=== PATIENT | male | born 1960 | race Caucasian/White ===

== ENCOUNTER 2016-04-04 14:39 | Inpatient (IN) ==
[2016-04-04] MEDS ORDERED: Ondansetron 4 MG/2 ML VIAL IV ONE (16:51)
[2016-04-04] MEDS ORDERED: *HR* HYDROmorphone (PF) 1 MG/ML SYRINGE IV ONE (16:51)
[2016-04-04] MEDS ORDERED: Vancomycin 1,500 MG in D5% in Water 250 ML IVPB ONE (17:00)
[2016-04-04] MEDS ORDERED: Piperacillin/Tazobactam 3.375 GM in D5% in Water (Mini-Bag+) 100 ML IVPB ONE (17:00)
[2016-04-04] MEDS ORDERED: Lidocaine/EPI 1:100k 1% 20 ML VIAL IJ ONE (17:01)
[2016-04-04 17:35] LABS: Basophils % 0.1 %; Eosinophils # 0.1 K/mcL (0.0-0.6); Eosinophils % 0.4 %; Hematocrit 48.4 % (37.5-50.1); Hemoglobin 15.7 g/dL (12.9-16.9); Immature Granulocytes % 1.3 % (0-4); Lymphocytes # 0.9 K/mcL (0.6-4.6); Mean Corpuscular HGB Conc 32.4 g/dL (31.6-35.5); Mean Corpuscular Hemoglobin 28.8 pg (28.0-33.3); Mean Corpuscular Volume 88.8 fL (83.0-100.0); Mean Platelet Volume 9.8 fL (9.4-12.4); Monocytes # 1.3 K/mcL (0.0-1.3); Monocytes % 7.1 %; Neutrophils # 15.8 K/mcL (1.6-8.9); Platelet Count 251 K/mcL (140-400); Red Blood Count 5.45 M/mcL (4.19-5.50); Red Cell Distribution Width 14.5 % (11.5-14.5); Segmented Neutrophils % 86.1 %
[2016-04-04 17:41] LABS: INR 1.1; Prothrombin Time 11.5 Seconds (9.4-12.1)
[2016-04-04 17:44] LABS: Activated Partial Thrombo Time 32.1 Seconds (26.0-36.0)
--- NOTE | 2016-04-04 17:44 | Emergency Department Note ---
Disposition Clinical Impression: Cellulitis of groin, right, Abscess of groin, right, Failure of outpatient treatment Disposition: Admitted As Inpatient Condition: Good Referrals: Thor Hilton MD [Primary Care Provider] - Forms: ED Satisfaction Letter Skin/Abscess/FB HPI Chief complaint: ED Skin/Abscess/Foreign Body Stated complaint: Abscess to groin Time Seen by Provider: 04/04/16 16:15 Source: patient Limitations: no limitations Nursing Notes Reviewed: Yes Vital Signs Reviewed: Yes HPI Narrative: Patient is a 55-year-old male who approximately 4 days ago was seen had a abscess in his right groin he was placed on Bactrim and Keflex and sent home. He states yesterday he had significant worsening of his symptoms he had redness erythema extending from his groin up into the area above his penis above his pubic bone. He states his painful red arm in appearance. Location: genitals (Groin) Severity: severe Quality: aching, dull Consistency: constant Improves with: none Worsens with: palpation Associated symptoms: Denies: fever, chills Treatments prior to arrival: other (Antibiotics) Allergies Allergy/AdvReac Type Severity Reaction Status Date / Time No Known Allergies Allergy Verified 04/04/16 14:55 All systems ED: reviewed and negative except as stated. Constitutional: Denies: fever, chills, weakness Gastrointestinal: Denies: nausea, vomiting, diarrhea Past Medical History - Past Medical History Source: patient, old records reviewed, nursing notes reviewed Medical history: Reports: diabetes, kidney stones Psychiatric history: Reports: no psych history - Social History Smoking Status: Current every day smoker Smokeless Tobacco Status: No Alcohol use: Reports: rarely Drug use: Reports: none Physical Exam - General Limitations: no limitations General appearance: alert, in no apparent distress - Head Head exam: atraumatic, normocephalic, normal inspection - Eye Eye exam: Present: normal appearance, PERRL, EOMI - Expanded Eye Exam Pupils: Left: reactive - ENT ENT exam: normal exam, normal oropharynx, mucous membranes moist - Expanded ENT Exam External ear exam: Present: normal external inspection Mouth exam: Present: normal external inspection Teeth exam: Present: normal inspection Throat exam: Present: normal inspection - Neck Neck exam: Present: normal inspection, full ROM, trachea midline - Chest Chest inspection: Present: normal inspection, symmetric chest wall rise - Respiratory Respiratory exam: Present: normal lung sounds bilaterally - Cardiovascular Cardiovascular exam: Present: regular rate, normal rhythm, normal heart sounds - Abdominal Exam Abdominal exam: Present: soft, Non-Tender. Absent: tenderness, distention, guarding, rebound, rigidity - Male exam: Present: other (Patient has some small abscess in the right groin the largest. About 1 cm he has diffuse erythema and induration in the right groin stenting in the mons pubis) - Extremities Exam Extremities exam: Present: normal inspection, full ROM. Absent: tenderness, pedal edema - Expanded Upper Extremity Exam Shoulder exam: Present: normal inspection, full ROM Arm exam: Present: normal inspection, full ROM Elbow exam: Present: normal inspection, full ROM Forearm/Wrist exam: Present: normal inspection, full ROM Hand exam: Present: normal inspection, full ROM Vascular exam: Normal: capillary refill, radial pulse - Expanded Lower Extremity Exam Hip/Pelvis exam: Present: normal inspection, full ROM Upper leg exam: Present: normal inspection, full ROM Knee exam: Present: normal inspection, full ROM Lower leg exam: Present: normal inspection, full ROM Ankle exam: Present: normal inspection, full ROM Foot/toe exam: Present: normal inspection, full ROM Neurovascular/Tendon exam: Absent: motor deficit, sensory deficit, tendon deficit - Back Exam Back exam: Present: normal inspection, full ROM. Absent: tenderness - Neurological Exam Neurological exam: Present: alert, oriented X3 - Expanded Neurological Exam Patient oriented to: Present: person, place, time Coma Scale Eye Opening: Spontaneous Coma Scale Motor Response: Obeys Commands Coma Scale Verbal Response: Oriented Coma Scale Total: 15 - Psychiatric Psychiatric exam: Present: normal affect, normal mood - Skin Skin exam: Present: warm, dry Course - Reevaluation(s) Reevaluation #1: dr. Caceres urology evaluated the patient the ER he will see him again first thing in the morning admitted to the hospitalist service IV antibiotics for now Time: 19:22 Vital Signs Temperature 98.2 F 04/04/16 14:55 Pulse Rate 97 04/04/16 14:55 Respiratory Rate 16 04/04/16 14:55 Blood Pressure 136/73 04/04/16 14:55 O2 Sat by Pulse Oximetry 97 04/04/16 14:55 Temperature 98.2 F 04/04/16 14:55 Pulse Rate 98 04/04/16 18:05 Respiratory Rate 18 02/22/17 18:05 Blood Pressure 146/76 04/04/16 18:05 O2 Sat by Pulse Oximetry 97 04/04/16 18:05 Oxygen Delivery Oxygen Delivery Room Air Procedures - Abscess I/D Consent obtained: verbal consent Site: scrotum Side (if applicable): right Local Anesthetic: lidocaine 1%, with epi Amount of Anesthesia Used (mL): 5 Technique: incised with #11 blade Amount of fluid: 1 Irrigation: No Packing used?: none Skin/Abscess/Foreign Body - Differential Diagnosis Likely: abscess of skin or subcutaneous tissue, allergic reaction to drug, cellulitis, eczema, insect bites - Medical Records Medical records reviewed: Yes I reviewed the patient's medical records. - Lab Data Lab results reviewed: Yes I reviewed the patient's lab results. Result diagrams: 04/04/16 17:10 04/04/16 17:10 Lab Results 04/04/16 04/04/16 04/04/16 Range/Units 17:10 17:10 17:10 WBC 18.3 H (4.3-11.1) K/mcL RBC 5.45 (4.19-5.50) M/mcL Hgb 15.7 (12.9-16.9) g/dL Hct 48.4 (37.5-50.1) % MCV 88.8 (83.0-100.0) fL MCH 28.8 (28.0-33.3) pg MCHC 32.4 (31.6-35.5) g/dL RDW 14.5 (11.5-14.5) % Plt Count 251 (140-400) K/mcL MPV 9.8 (9.4-12.4) fL Immature Gran % 1.3 (0-4) % Seg Neutrophils % 86.1 % Lymphocytes % 5.0 % Monocytes % 7.1 % Eosinophils % 0.4 % Basophils % 0.1 % Neutrophils # 15.8 H (1.6-8.9) K/mcL Lymphocytes # 0.9 (0.6-4.6) K/mcL Monocytes # 1.3 (0.0-1.3) K/mcL Eosinophils # 0.1 (0.0-0.6) K/mcL Basophils # 0.0 (0.0-0.2) K/mcL PT 11.5 (9.4-12.1) Seconds INR 1.1 APTT 32.1 (26.0-36.0) Seconds Sodium 134 L (136-145) mEq/L Potassium 4.2 (3.5-4.5) mEq/L Chloride 101 (98-109) mEq/L Carbon Dioxide 20 (19-29) mEq/L BUN 15 (8-26) mg/dL Creatinine 0.89 (0.72-1.25) mg/dL Est GFR ( Amer) > 60 (> 60) Est GFR (Non-Af Amer) > 60 (> 60) BUN/Creatinine Ratio 17 (6-26) Glucose 311 H (70-99) mg/dL Calculated Osmolality 291 (280-300) Calcium 9.9 (8.6-10.8) mg/dL Magnesium 1.9 (1.6-2.6) mg/dL Total Bilirubin 0.9 (0.2-1.2) mg/dL Direct Bilirubin 0.3 (0.0-0.5) mg/dL Indirect Bilirubin 0.6 (0.0-1.2) mg/dL AST 14 (5-34) Units/L ALT 26 (0-55) Units/L Alkaline Phosphatase 174 H (38-126) Units/L Serum Total Protein 7.3 (6.0-8.3) g/dL Albumin 3.0 L (3.5-5.0) g/dL Globulin 4.3 H (2.4-3.5) g/dL Albumin/Globulin Ratio 0.7 L (1.1-2.2) - Radiology Data Radiology results reviewed: Yes I reviewed the patient's radiology results.
[2016-04-04 17:48] LABS: Alanine Aminotransferase 26 Units/L (0-55); Albumin/Globulin Ratio 0.7 (1.1-2.2); Alkaline Phosphatase 174 Units/L (38-126); Aspartate Amino Transferase 14 Units/L (5-34); BUN/Creatinine Ratio 17 (6-26); Bilirubin,Direct 0.3 mg/dL (0.0-0.5); Bilirubin,Indirect 0.6 mg/dL (0.0-1.2); Bilirubin,Total 0.9 mg/dL (0.2-1.2); Blood Urea Nitrogen 15 mg/dL (8-26); Calcium 9.9 mg/dL (8.6-10.8); Carbon Dioxide 20 mEq/L (19-29); Chloride 101 mEq/L (98-109); Globulin 4.3 g/dL (2.4-3.5); Glucose 311 mg/dL (70-99); Magnesium 1.9 mg/dL (1.6-2.6); Osmolality,Calculated 291 (280-300); Potassium 4.2 mEq/L (3.5-4.5); Sodium 134 mEq/L (136-145); Total Protein 7.3 g/dL (6.0-8.3); eGFR For African Americans > 60 (> 60); eGFR For Non-African Americans > 60 (> 60)
[2016-04-04 19:24] LABS: C-Reactive Protein 392 mg/L (Less than 5)
[2016-04-04] MEDS ORDERED: *HR* Morphine 2 MG/ML SYRINGE IVP PRN (20:47)
[2016-04-04] MEDS ORDERED: Ibuprofen 400 MG TABLET PO PRN (20:47)
[2016-04-04] MEDS ORDERED: Naloxone 0.4 MG/ML INJ IVP PRN (20:47)
[2016-04-04] MEDS ORDERED: Dextrose Gel 15 GM PO PRN ×2 (20:47)
[2016-04-04] MEDS ORDERED: Acetaminophen 325 MG TABLET PO PRN (20:47)
[2016-04-04] MEDS ORDERED: *HR* Dextrose 50 % in Water (Syg) 50 ML SYRINGE IVP PRN (20:47)
[2016-04-04] MEDS ORDERED: D5% in Water 1,000 ML IV PRN (20:47)
[2016-04-04] MEDS ORDERED: Ondansetron 4 MG/2 ML VIAL IVP PRN (20:47)
[2016-04-04] MEDS ORDERED: Vancomycin 1,500 MG in D5% in Water 250 ML IVPB SCH (21:00)
--- NOTE | 2016-04-04 21:08 | Urology - Consult Note ---
Date of Encounter: 04/04/16 Time of Encounter: 21:06 Urology CN:HPI Consult date: 04/04/16 Reason for consult Urology: Other History of present illness: pt seen in Dr Costa's office today. sent to ER for possible inguinal infection. no fever. has been present for 1 week but one day hx of rapid right inguinal swelling and pain. hx of abscesses. +DM. no drainage. Past Med Surg Social Fam HX - Past Medical History Medical history: diabetes, kidney stones Psychiatric history: no psych history - Social History Smoking Status: Current every day smoker Smokeless Tobacco Status: No Alcohol use: rarely Drug use: none Medications and Allergies Atorvastatin Calcium [Lipitor] 80 mg PO HS 04/04/16 [History] Cephalexin [Keflex] 500 mg PO Q6H 04/04/16 [History] Insulin Glargine [Lantus] 65 unit SQ BID 04/04/16 [History] Metformin HCl [Glucophage Xr] 750 mg PO QPM 04/04/16 [History] Oxycodone HCl/Acetaminophen [Percocet 5-325 mg Tablet] 1 each PO Q6H PRN [History] Ramipril [Altace] 5 mg PO DAILY 04/04/16 [History] Sulfamethoxazole/Trimeth DS [Bactrim DS] 1 each PO BID 04/04/16 [History] Allergies No Known Allergies Allergy (Verified 04/04/16 14:55) Review of Systems - Constitutional malaise, no fever(s) - EENT Nose, mouth and throat: no dry mouth - Cardiovascular no chest pain - Respiratory no cough - Gastrointestinal no abdominal pain - Genitourinary no dysuria - Integumentary erythema, swelling - Neurological no confusion - Psychiatric no anxiety - Hematologic/Lymphatic no easy bleeding - Allergic/Immunologic no throat swelling Exam Initial Vital Signs Temp Pulse Resp BP Pulse Ox 98.2 F 97 16 136/73 97 04/04/16 14:55 04/04/16 14:55 04/04/16 14:55 04/04/16 14:55 04/04/16 14:55 - General physical appearance Present: well developed, no distress - Eyes Present: PERRL - ENT Present: normal nares - Neck Present: no masses - Respiratory Present: normal respiratory effort - Abdomen Abdomen: Present: soft - Genitourinary other (elevated, enlarged tender right inguinal area. erythema extends up to suprapubic area. minimal scrotal or penile involvement. some flutuance but no obvious abscess. warm to touch. no crepitus. testicle palpates normal.) - Neurologic Present: normal coordination Urology Results - Labs 04/04/16 17:10 04/04/16 17:10 Abnormal lab results WBC 18.3 K/mcL (4.3-11.1) H 04/04/16 17:10 Neutrophils # 15.8 K/mcL (1.6-8.9) H 04/04/16 17:10 ESR 115 mm/hr (0-10) H 04/04/16 17:10 Sodium 134 mEq/L (136-145) L 04/04/16 17:10 Glucose 311 mg/dL (70-99) H 04/04/16 17:10 Alkaline Phosphatase 174 Units/L (38-126) H 04/04/16 17:10 C-Reactive Protein 392 mg/L (Less than 5) H 04/04/16 17:10 Albumin 3.0 g/dL (3.5-5.0) L 04/04/16 17:10 Globulin 4.3 g/dL (2.4-3.5) H 04/04/16 17:10 Albumin/Globulin Ratio 0.7 (1.1-2.2) L 04/04/16 17:10 All other labs normal. Consult Discharge Plan - Plan Referrals: Thor Hilton MD [Primary Care Provider] -
[2016-04-04 21:10] LABS: Hemoglobin A1C 10.7 %
--- NOTE | 2016-04-04 21:12 | Internal Med History&Physical ---
Date of Encounter: 04/04/16 Time of Encounter: 20:05 Assessment and Plan (1) Cellulitis of groin, right Current visit: Yes Status: Acute 1. Small I&D performed in ER -- cultures obtained. 2. Dr. Caceres saw patient in ER and we discussed case together. 3. Blood cultures ordered. 4. Broad spectrum antibiotics including Vancomycin, Zosyn, and Flagyl. 5. Urology (Dr. Caceres) will re-evaluate in a.m. and decide if surgery is necessary. 6. Will order urinalysis and culture. 7. S/p failed outpatient treatment. (2) IDDM (insulin dependent diabetes mellitus) Current visit: Yes Status: Chronic 1. Will continue Lantus at half the home dose given he will be npo. 2. Hold Metformin. 3. SSI as needed. 4. Adjust insulin as needed to maintain glucose control. (3) DVT prophylaxis Current visit: Yes Status: Acute 1. Heparin SQ. Internal Medicine - H&P: HPI Chief complaint: right groin cellulitis s/p failed outpatient treatment Admitted From: Emergency Dept Plans for Post Hospital Care: Home History of present illness: Mr. Guevara is a 55 year old male who was sent to the ER with complaints of persistent right groin and inguinal cellulitis despite outpatient antibiotic treatment. He was seen in urology clinic this afternoon and referred to ER for admission. In the ER, patient had a small incision and culture performed by the ER staff. A CT scan of the pelvis was obtained also which revealed cellulitis of the right groin with possibility of Laney's gangrene. ER staff contacted me to admit the patient. I requested urgent evaluation by urology. Dr. Caceres was contacted by ER staff who saw patient immediately. Dr. Caceres then contacted me and we discussed the patient case. Dr. Caceres agrees patient should be admitted and placed on aggressive IV antibiotics. He outlined and demarcated the areas of cellulitis with marker. He does not feel patient needs surgery at this present time. He will reevaluate in the analyst business analysis and decide on the need for possible surgical intervention. He is hopeful that patient will likely only need incision and drainage of an abscess. At that point, I agreed with Dr. Caceres and admitted patient to hospitalist service with consultation to urology. I saw patient in the ER and he reiterated the above history. He has been dealing with this for several days to a week. He has been on Bactrim and Keflex with little improvement and initial worsening of his cellulitis. He denies any fevers, chills, or body aches. He is diabetic and notes his glucoses been relatively stable and running about 150-200, which is his baseline. He denies any dysuria, hematuria, urinary urgency, or flank pain. He is very pleasant and cooperative and denies any complaints at the present time. Past Med Surg Social Fam HX - Past Medical History Attestation: Yes The following information was validated with the patient. Source: patient, old records reviewed Medical history: diabetes, hyperlipidemia, hypertension, kidney stones Psychiatric history: no psych history - Past Surgical History Surgical History: other (kidney stone extraction) - Social History Smoking Status: Current every day smoker Smokeless Tobacco Status: No Alcohol use: rarely Drug use: none Occupational status: employed Current living situation: Home, With Family Activity Level: Independent ambulation Recent Out of Country Travel Within the Last 8 Weeks: No - Family History Mother Living Status: Still Living Hx Family GI Disorders: No Hx Family Genitourinary Disorders: No Hx Family Endocrine Disorder: No Father Living Status: Cause of : alcoholism Internal Medicine - H&P: Meds Atorvastatin Calcium [Lipitor] 80 mg PO HS 04/04/16 [History] Cephalexin [Keflex] 500 mg PO Q6H 04/04/16 [History] Insulin Glargine [Lantus] 65 unit SQ BID 04/04/16 [History] Metformin HCl [Glucophage Xr] 750 mg PO QPM 04/04/16 [History] Oxycodone HCl/Acetaminophen [Percocet 5-325 mg Tablet] 1 each PO Q6H PRN [History] Ramipril [Altace] 5 mg PO DAILY 04/04/16 [History] Sulfamethoxazole/Trimeth DS [Bactrim DS] 1 each PO BID 04/04/16 [History] Allergies No Known Allergies Allergy (Verified 04/04/16 14:55) - Constitutional Constitutional: no chills, no fever(s) - EENT Eyes: no change in vision Ears: no ear pain, no tinnitus Nose, mouth and throat: no nasal congestion - Cardiovascular Cardiovascular ROS IM: no chest pain, no dyspnea, no dyspnea on exertion - Respiratory Respiratory: no cough, no hemoptysis, no chest congestion, no change in phlegm color - Gastrointestinal Gastrointestinal: no abdominal pain, no diarrhea, no hematemesis, no hematochezia, no nausea, no vomiting - Genitourinary Genitourinary ROS male: no dysuria, no flank pain, no hematuria, no nocturia - Musculoskeletal Musculoskeletal ROS IM: no muscle cramps, no muscle weakness - Integumentary Integumentary IM: rash (cellulitis in right groin area), sores (right groin area ), no unusual bruising - Neurological Neurological ROS: no dizziness, no focal weakness, no headache(s), no weakness - Psychiatric Psychiatric: no anxiety, no depression - Endocrine Endocrine IM: no polydipsia, no polyphagia, no polyuria - Hematologic/Lymphatic Hematologic/Lymphatic: no easy bruising - Allergic/Immunologic Allergic/Immunologic: no wheezing, no GI upset with certain foods - Constitutional Vitals: Temp Pulse Resp BP Pulse Ox 98.2 F 96 16 146/86 97 04/04/16 14:55 04/04/16 19:52 04/04/16 20:10 04/04/16 20:10 04/04/16 19:52 General appearance: Present: cooperative, A&O X 3, pleasant, no acute distress, answers questions appropriately - Head Head exam: Present: atraumatic, normal inspection - Eye Eye exam: Present: EOMI, normal appearance, PERRL. Absent: scleral icterus Pupils: Present: normal accommodation - ENT ENT exam: Present: mucous membranes dry, normal exam, normal oropharynx - Neck Neck exam general surgery: Present: full ROM, normal inspection, supple. Absent : lymphadenopathy, nuchal rigidity, thyromegaly - Expanded Neck Exam Neck exam: Absent: carotid bruit - Respiratory Respiratory exam: Present: CTAB. Absent: rales, respiratory distress, rhonchi, wheezes - Cardiovascular Cardiovascular exam: Present: RRR, +S1, +S2. Absent: diastolic murmur, systolic murmur - GI/Abdominal GI/Abdominal exam: Present: normal bowel sounds. Absent: guarding, hepatomegaly , mass, rebound, splenomegaly, tenderness - exam: Present: scrotal swelling (redness/swelling/warmth in right prepubic area and into right scrotal area; no fluctuance; no significant tenderness; no crepitus; no drainage). Absent: normal inspection - Extremities Exam Extremities exam: Present: full ROM, normal capillary refill, warm. Absent: calf tenderness, pedal edema, tenderness - Back Exam Back exam: Present: normal inspection. Absent: CVA tenderness (L), CVA tenderness (R) - Neurological Exam Neurological exam: Present: alert, CN II-XII intact, oriented X3, no focal deficits - Psychiatric Psychiatric exam: Absent: anxious, depressed - Skin Skin exam: Present: dry, warm Internal Med - H&P Results - Labs CBC & Chem 7: 04/04/16 17:10 04/04/16 17:10 - Diagnostic Studies CT scan - pelvis Status: image reviewed by me (report noted and images viewed personally)
--- NOTE | 2016-04-04 21:22 | Event Note ---
Date of Encounter: 04/04/16 Time of Encounter: 21:[address] A/P in original note Assessment right inguinal cellulitis Plan Based on my exam and review of the CT scan I do not feel this is true necrotizing fascia. No urgent need for surgical intervention tonight. start broad spectrum ABX and will reexam in AM. I did not see an abscess on the ct scan but he may end up needed an I&D or wound exploration if limited improvement.
[2016-04-04] MEDS: Famotidine 20 MG TABLET PO SCH (22:39)
[2016-04-04] MEDS: 0.9 % Sodium Chloride 1,000 ML IVC SCH (22:40)
[2016-04-04] MEDS: MetroNIDAZOLE 500 MG/100 ML 500 MG/100 ML BAG IVPB SCH ×2 (22:40→23:32)
[2016-04-04] MEDS: *HR* Heparin 5,000 UNIT/ML VIAL SQ SCH (23:18)
[2016-04-04] MEDS: Piperacillin/Tazobactam 3.375 GM in D5% in Water (Mini-Bag+) 100 ML IVPB SCH (23:18)
[2016-04-04] MEDS: Insulin LISPRO 300 UNITS/3 ML VIAL SQ SCH (23:26)
[2016-04-04] MEDS: Insulin DETEMIR 100 UNIT/ML X5UNITS SQ SCH (23:26)
[2016-04-05 00:30] LABS: Bilirubin,Urine Negative (Negative); Blood,Urine Negative (Negative); Clarity,Urine Clear (Clear); Color,Urine Yellow (Yellow); Glucose,Urine (UA) >=1000 mg/dL (Normal); Ketones,Urine >=160 mg/dL (Negative); Leukocyte Esterase,Urine Negative (Negative); Nitrite,Urine Negative (Negative); PH,Urine 5.5 pH Units (5.0-8.0); Protein,Urine 30 mg/dL (Neg-Trace); Specific Gravity,Urine > 1.030 (1.010-1.025); Urobilinogen,Urine Normal (Normal)
[2016-04-05 00:47] LABS: Bacteria,Urine None Seen per hpf (None-Few); Hyaline Casts,Urine None Seen per lpf (None-Few); Squamous Epithelial Cell,Urine Moderate per lpf (None-Few); WBC,Urine 0-3 per hpf (0-3)
[2016-04-05 06:24] LABS: Alanine Aminotransferase 16 Units/L (0-55); Albumin 2.3 g/dL (3.5-5.0); Albumin/Globulin Ratio 0.6 (1.1-2.2); Alkaline Phosphatase 151 Units/L (38-126); Aspartate Amino Transferase 10 Units/L (5-34); BUN/Creatinine Ratio 15 (6-26); Bilirubin,Total 0.5 mg/dL (0.2-1.2); Blood Urea Nitrogen 11 mg/dL (8-26); Calcium 8.9 mg/dL (8.6-10.8); Carbon Dioxide 19 mEq/L (19-29); Chloride 103 mEq/L (98-109); Globulin 3.7 g/dL (2.4-3.5); Glucose 197 mg/dL (70-99); Magnesium 1.5 mg/dL (1.6-2.6); Osmolality,Calculated 281 (280-300); Potassium 4.2 mEq/L (3.5-4.5); Sodium 133 mEq/L (136-145); eGFR For African Americans > 60 (> 60); eGFR For Non-African Americans > 60 (> 60)
[2016-04-05 06:27] LABS: Basophils % 0.1 %; Eosinophils % 0.1 %; Hematocrit 39.5 % (37.5-50.1); Hemoglobin 13.5 g/dL (12.9-16.9); Immature Granulocytes % 2.5 % (0-4); Immature Platelets 4.6 % (1.1-6.1); Lymphocytes # 0.9 K/mcL (0.6-4.6); Lymphocytes % 3.9 %; Mean Corpuscular HGB Conc 34.2 g/dL (31.6-35.5); Mean Corpuscular Volume 87.8 fL (83.0-100.0); Mean Platelet Volume 10.5 fL (9.4-12.4); Monocytes # 2.4 K/mcL (0.0-1.3); Monocytes % 10.7 %; Neutrophils # 18.3 K/mcL (1.6-8.9); Platelet Count 251 K/mcL (140-400); Red Cell Distribution Width 14.5 % (11.5-14.5); Segmented Neutrophils % 82.7 %
[2016-04-05] MEDS: Insulin LISPRO 300 UNITS/3 ML VIAL SQ SCH ×3 (06:33→19:40)
[2016-04-05] MEDS: Vancomycin 1,500 MG in D5% in Water 250 ML IVPB SCH ×2 (06:34→19:40)
--- NOTE | 2016-04-05 06:48 | Urology Progress Note ---
Date of Encounter: 04/05/16 Time of Encounter: 06:45 - Assessment and Plan (1) Abscess of groin, right Current Visit: Yes Status: Acute Assessment and plan: pts exam has improved. increase in WBC is not concerning. abscess is spontaneously draining. will probably not need surgical exploration/ debridement. will reassess this afternoon and may perform I&D at bedside if the area is still draining. Progress Note Subjective: feels better Narrative: large spontaneuous drainage overnight. Objective Initial Vital Signs Temp Pulse Resp BP Pulse Ox 98.2 F 97 16 136/73 97 04/04/16 14:55 04/04/16 14:55 04/04/16 14:55 04/04/16 14:55 04/04/16 14:55 - General physical appearance Present: well developed, no distress - Additional Exam decrease erythema in suprapubic area. elevated inguinal area has decreased. with palpation - moderated purulent bloody drainage from inguinal crease. - Labs 04/05/16 05:06 04/05/16 05:06 Diabetes panel 04/05/16 Range/Units 05:06 Sodium 133 L (136-145) mEq/L Potassium 4.2 (3.5-4.5) mEq/L Chloride 103 (98-109) mEq/L Carbon Dioxide 19 (19-29) mEq/L BUN 11 (8-26) mg/dL Creatinine 0.71 L (0.72-1.25) mg/dL Glucose 197 H (70-99) mg/dL Calcium 8.9 (8.6-10.8) mg/dL AST 10 (5-34) Units/L ALT 16 (0-55) Units/L Alkaline Phosphatase 151 H (38-126) Units/L Albumin 2.3 L D (3.5-5.0) g/dL Calcium panel 04/05/16 Range/Units 05:06 Calcium 8.9 (8.6-10.8) mg/dL Albumin 2.3 L D (3.5-5.0) g/dL Pituitary panel 04/05/16 Range/Units 05:06 Sodium 133 L (136-145) mEq/L Potassium 4.2 (3.5-4.5) mEq/L Chloride 103 (98-109) mEq/L Carbon Dioxide 19 (19-29) mEq/L BUN 11 (8-26) mg/dL Creatinine 0.71 L (0.72-1.25) mg/dL Glucose 197 H (70-99) mg/dL Calcium 8.9 (8.6-10.8) mg/dL Adrenal panel 04/05/16 Range/Units 05:06 Sodium 133 L (136-145) mEq/L Potassium 4.2 (3.5-4.5) mEq/L Chloride 103 (98-109) mEq/L Carbon Dioxide 19 (19-29) mEq/L BUN 11 (8-26) mg/dL Creatinine 0.71 L (0.72-1.25) mg/dL Glucose 197 H (70-99) mg/dL Calcium 8.9 (8.6-10.8) mg/dL Total Bilirubin 0.5 (0.2-1.2) mg/dL AST 10 (5-34) Units/L ALT 16 (0-55) Units/L Alkaline Phosphatase 151 H (38-126) Units/L Albumin 2.3 L D (3.5-5.0) g/dL Consult Discharge Plan - Plan Referrals: Thor Hilton MD [Primary Care Provider] -
[2016-04-05 07:04] LABS: Platelet Estimate Normal (Normal)
[2016-04-05 07:58] LABS: Phosphorous 3.1 mg/dL (2.3-4.7)
[2016-04-05] MEDS: MetroNIDAZOLE 500 MG/100 ML 500 MG/100 ML BAG IVPB SCH ×2 (10:21→19:39)
[2016-04-05] MEDS: Piperacillin/Tazobactam 3.375 GM in D5% in Water (Mini-Bag+) 100 ML IVPB SCH ×2 (10:25→19:39)
[2016-04-05] MEDS: *HR* Heparin 5,000 UNIT/ML VIAL SQ SCH ×2 (11:10→19:39)
[2016-04-05] MEDS: Famotidine 20 MG TABLET PO SCH ×2 (11:11→20:57)
[2016-04-05] MEDS ORDERED: Magnesium Sulfate 2 GM in D5% in Water 100 ML IVPB ONE (11:32)
[2016-04-05] MEDS ORDERED: Insulin DETEMIR 100 UNIT/ML X5UNITS SQ SCH (12:00)
[2016-04-05] MEDS: 0.9 % Sodium Chloride 1,000 ML IVC SCH ×2 (12:34→20:57)
--- NOTE | 2016-04-05 13:59 | Internal Med Progress Note ---
Date of Encounter: 04/05/16 Time of Encounter: 13:15 - Assessment and plan (1) Scrotum, abscess Current Visit: Yes Status: Acute (2) Abscess of groin, right Current Visit: Yes Status: Acute (3) Cellulitis of groin, right Current Visit: Yes Status: Acute (4) IDDM (insulin dependent diabetes mellitus) Current Visit: Yes Status: Chronic - Time Spent With Patient Plan replace electrolytes, discussed with urology okay to start diet,increase insulin sliding scale. add one bolus fluids, check lactic acid. continue IV fluid. Close monitoring of vital sign. Incision and drainage tonight. Check CBC and basic metabolic profile next AM . 25 - 35 minutes - Subjective Interval history: patient denies any chest pain or shortness of breath. Patient is feeling better compared to yesterday. Still continue to have drainage from the abscess. - Constitutional Vitals: Temp Pulse Resp BP Pulse Ox 98.5 F 90 16 99/61 93 L 04/05/16 11:45 04/05/16 11:45 04/05/16 11:45 04/05/16 11:45 04/05/16 11:45 General appearance: Present: cooperative, A&O X 3, pleasant, no acute distress, answers questions appropriately - Neck Neck exam general surgery: Present: supple, trachea midline. Absent: lymphadenopathy - Respiratory Respiratory exam: Present: prolonged expiratory phase. Absent: accessory muscle use, rales, rhonchi, wheezes - Cardiovascular Cardiovascular exam: Present: RRR, +S1, +S2. Absent: diastolic murmur, gallop, rubs, systolic murmur - GI/Abdominal GI/Abdominal exam: Present: normal bowel sounds, soft, no peritoneal signs. Absent: distended - Expanded Exam Male exam: Present: erythema, induration (marked swelling erythema and induration right scrotum) Internal Medicine: Result - Labs CBC & Chem 7: 04/05/16 05:06 04/05/16 05:06 Labs: Short CBC 04/05/16 Range/Units 05:06 WBC 22.1 H (4.3-11.1) K/mcL Hgb 13.5 D (12.9-16.9) g/dL Hct 39.5 (37.5-50.1) % Plt Count 251 (140-400) K/mcL Neutrophils # 18.3 H (1.6-8.9) K/mcL BMP 04/05/16 05:06 Sodium 133 L Potassium 4.2 Chloride 103 Carbon Dioxide 19 BUN 11 Creatinine 0.71 L Glucose 197 H Calcium 8.9 Liver Function 04/05/16 Range/Units 05:06 Total Bilirubin 0.5 (0.2-1.2) mg/dL AST 10 (5-34) Units/L ALT 16 (0-55) Units/L Alkaline Phosphatase 151 H (38-126) Units/L Albumin 2.3 L D (3.5-5.0) g/dL Urine 04/04/16 Range/Units 23:40 Urine Color Yellow (Yellow) Urine Clarity Clear (Clear) Urine pH 5.5 (5.0-8.0) pH Units Ur Specific [place] > 1.030 H (1.010-1.025) Urine Protein 30 H (Neg-Trace) mg/dL Urine Glucose (UA) >=1000 H (Normal) mg/dL - ABG Interpretation ABG results: PT/INR, D-dimer PT 11.5 Seconds (9.4-12.1) 04/04/16 17:10 Consult Discharge Plan - Plan Referrals: Thor Hilton MD [Primary Care Provider] -
[2016-04-05] MEDS ORDERED: 0.9 % Sodium Chloride 500 ML IVC ONE (14:42)
[2016-04-05] MEDS ORDERED: Lidocaine/EPI 1:100k 2% 20 ML VIAL INFILT ONE (15:51)
[2016-04-05] MEDS: Insulin DETEMIR 100 UNIT/ML X5UNITS SQ SCH (20:57)
--- NOTE | 2016-04-05 21:13 | Urology Procedure Note ---
Date of Encounter: 04/05/16 Time of Encounter: 21:13 Procedures:Urology - Abscess I/D Consent obtained: verbal consent, written consent Site: groin Side (if applicable): right Technique: incised with #11 blade (used 20cc lidocaine with epi. made 4-5 cm incision over area of fluctuance in right lower inguinal area. evacuated purulence. probed with finger and hemostat. ) Amount of fluid: 20 (bloody purulence) Irrigation: No Packing used?: iodoform Complications: none
[2016-04-06] MEDS: Insulin LISPRO 300 UNITS/3 ML VIAL SQ SCH ×4 (00:07→17:58)
[2016-04-06] MEDS: Piperacillin/Tazobactam 3.375 GM in D5% in Water (Mini-Bag+) 100 ML IVPB SCH ×3 (00:17→17:09)
[2016-04-06] MEDS: MetroNIDAZOLE 500 MG/100 ML 500 MG/100 ML BAG IVPB SCH ×3 (00:19→17:09)
[2016-04-06] MEDS: *HR* Heparin 5,000 UNIT/ML VIAL SQ SCH ×3 (00:20→17:09)
[2016-04-06] MEDS: 0.9 % Sodium Chloride 1,000 ML IVC SCH ×4 (05:52→20:35)
[2016-04-06] MEDS: Vancomycin 1,500 MG in D5% in Water 250 ML IVPB SCH ×2 (05:53→17:58)
[2016-04-06] MEDS ORDERED: Lidocaine/EPI 1:100k 2% 20 ML VIAL INFILT ONE (07:01)
--- NOTE | 2016-04-06 07:25 | Urology Procedure Note ---
Date of Encounter: 04/06/16 Time of Encounter: 07:23 Procedures:Urology - Abscess I/D Consent obtained: verbal consent Site: groin Side (if applicable): right Technique: incised with #11 blade Amount of fluid: 10 (a second area of flucutance developed above my I&D site. 20 cc lidocaine with epi injected and 11 blade opened. small amount of purulence. debrided some nectrotic tissue and packed. ) Irrigation: No Packing used?: plain Complications: none
--- NOTE | 2016-04-06 07:27 | Urology Progress Note ---
Date of Encounter: 04/06/16 Time of Encounter: 07:25 - Assessment and Plan (1) Abscess of groin, right Current Visit: Yes Status: Acute Assessment and plan: see procedure note. second I&D this AM. will follow this afternoon. if still no improvement, may need large debridement in OR as some of the tissue may be devitalized. ok to eat today. would likely take tomorrow. control blood sugars and continue ABX. Progress Note Subjective: no new complaints, feels better Narrative: no issues overnight Objective Initial Vital Signs Temp Pulse Resp BP Pulse Ox 98.2 F 97 16 136/73 97 04/04/16 14:55 04/04/16 14:55 04/04/16 14:55 04/04/16 14:55 04/04/16 14:55 - General physical appearance Present: well developed, no distress - Additional Exam no decrease in erythema overnight and new area of fluctuated area above last I& D site. - Labs 04/05/16 05:06 04/05/16 05:06 Diabetes panel 04/05/16 Range/Units 05:06 Sodium 133 L (136-145) mEq/L Potassium 4.2 (3.5-4.5) mEq/L Chloride 103 (98-109) mEq/L Carbon Dioxide 19 (19-29) mEq/L BUN 11 (8-26) mg/dL Creatinine 0.71 L (0.72-1.25) mg/dL Glucose 197 H (70-99) mg/dL Calcium 8.9 (8.6-10.8) mg/dL AST 10 (5-34) Units/L ALT 16 (0-55) Units/L Alkaline Phosphatase 151 H (38-126) Units/L Albumin 2.3 L D (3.5-5.0) g/dL Calcium panel 04/05/16 Range/Units 05:06 Calcium 8.9 (8.6-10.8) mg/dL Phosphorus 3.1 (2.3-4.7) mg/dL Albumin 2.3 L D (3.5-5.0) g/dL Pituitary panel 04/05/16 Range/Units 05:06 Sodium 133 L (136-145) mEq/L Potassium 4.2 (3.5-4.5) mEq/L Chloride 103 (98-109) mEq/L Carbon Dioxide 19 (19-29) mEq/L BUN 11 (8-26) mg/dL Creatinine 0.71 L (0.72-1.25) mg/dL Glucose 197 H (70-99) mg/dL Calcium 8.9 (8.6-10.8) mg/dL Adrenal panel 04/05/16 Range/Units 05:06 Sodium 133 L (136-145) mEq/L Potassium 4.2 (3.5-4.5) mEq/L Chloride 103 (98-109) mEq/L Carbon Dioxide 19 (19-29) mEq/L BUN 11 (8-26) mg/dL Creatinine 0.71 L (0.72-1.25) mg/dL Glucose 197 H (70-99) mg/dL Calcium 8.9 (8.6-10.8) mg/dL Total Bilirubin 0.5 (0.2-1.2) mg/dL AST 10 (5-34) Units/L ALT 16 (0-55) Units/L Alkaline Phosphatase 151 H (38-126) Units/L Albumin 2.3 L D (3.5-5.0) g/dL Consult Discharge Plan - Plan Referrals: Thor Hilton MD [Primary Care Provider] -
[2016-04-06] MEDS: Famotidine 20 MG TABLET PO SCH ×2 (08:46→20:33)
[2016-04-06] MEDS: Insulin DETEMIR 100 UNIT/ML X5UNITS SQ SCH ×3 (08:48→20:33)
[2016-04-06 12:01] LABS: Basophils % 0.2 %; Eosinophils % 0.2 %; Hematocrit 41.8 % (37.5-50.1); Immature Granulocytes % 0.9 % (0-4); Lymphocytes # 0.9 K/mcL (0.6-4.6); Lymphocytes % 5.3 %; Mean Corpuscular HGB Conc 33.5 g/dL (31.6-35.5); Mean Corpuscular Hemoglobin 28.8 pg (28.0-33.3); Mean Platelet Volume 9.5 fL (9.4-12.4); Monocytes % 12.3 %; Neutrophils # 13.1 K/mcL (1.6-8.9); Platelet Count 267 K/mcL (140-400); Red Blood Count 4.86 M/mcL (4.19-5.50); Red Cell Distribution Width 14.5 % (11.5-14.5); Segmented Neutrophils % 81.1 %
[2016-04-06 12:15] LABS: BUN/Creatinine Ratio 13 (6-26); Blood Urea Nitrogen 9 mg/dL (8-26); Calcium 8.5 mg/dL (8.6-10.8); Carbon Dioxide 21 mEq/L (19-29); Chloride 101 mEq/L (98-109); Glucose 221 mg/dL (70-99); Osmolality,Calculated 277 (280-300); Potassium 3.9 mEq/L (3.5-4.5); Sodium 131 mEq/L (136-145); eGFR For African Americans > 60 (> 60); eGFR For Non-African Americans > 60 (> 60)
--- NOTE | 2016-04-06 15:06 | Urology Progress Note ---
Date of Encounter: 04/06/16 Time of Encounter: 15:05 - Assessment and Plan (1) Abscess of groin, right Current Visit: Yes Status: Acute Assessment and plan: will again reevaluate in AM. may require surgical debridement if no improvement. WBC has decreased. Progress Note Subjective: no new complaints, pain is less Objective Initial Vital Signs Temp Pulse Resp BP Pulse Ox 98.2 F 97 16 136/73 97 04/04/16 14:55 04/04/16 14:55 04/04/16 14:55 04/04/16 14:55 04/04/16 14:55 - Additional Exam no new area of flutuance but erythema has not decreased. - Labs 04/06/16 11:48 04/06/16 11:48 Diabetes panel 04/06/16 Range/Units 11:48 Sodium 131 L (136-145) mEq/L Potassium 3.9 (3.5-4.5) mEq/L Chloride 101 (98-109) mEq/L Carbon Dioxide 21 (19-29) mEq/L BUN 9 (8-26) mg/dL Creatinine 0.71 L (0.72-1.25) mg/dL Glucose 221 H (70-99) mg/dL Calcium 8.5 L (8.6-10.8) mg/dL Calcium panel 04/06/16 Range/Units 11:48 Calcium 8.5 L (8.6-10.8) mg/dL Pituitary panel 04/06/16 Range/Units 11:48 Sodium 131 L (136-145) mEq/L Potassium 3.9 (3.5-4.5) mEq/L Chloride 101 (98-109) mEq/L Carbon Dioxide 21 (19-29) mEq/L BUN 9 (8-26) mg/dL Creatinine 0.71 L (0.72-1.25) mg/dL Glucose 221 H (70-99) mg/dL Calcium 8.5 L (8.6-10.8) mg/dL Adrenal panel 04/06/16 Range/Units 11:48 Sodium 131 L (136-145) mEq/L Potassium 3.9 (3.5-4.5) mEq/L Chloride 101 (98-109) mEq/L Carbon Dioxide 21 (19-29) mEq/L BUN 9 (8-26) mg/dL Creatinine 0.71 L (0.72-1.25) mg/dL Glucose 221 H (70-99) mg/dL Calcium 8.5 L (8.6-10.8) mg/dL Consult Discharge Plan - Plan Referrals: Thor Hilton MD [Primary Care Provider] -
--- NOTE | 2016-04-06 17:03 | Internal Med Progress Note ---
Date of Encounter: 04/06/16 Time of Encounter: 11:40 - Assessment and plan (1) Scrotum, abscess Current Visit: Yes Status: Acute (2) Abscess of groin, right Current Visit: Yes Status: Acute (3) Cellulitis of groin, right Current Visit: Yes Status: Acute (4) IDDM (insulin dependent diabetes mellitus) Current Visit: Yes Status: Chronic (5) Hypomagnesemia Current Visit: Yes Status: Acute - Time Spent With Patient Leukocytosis trending down , vital signs stable. Appreciate urology input. Reevaluation tomorrow morning by urology team for need for surgery. If needed patient is cleared for surgery. Continue monitoring electrolytes. Add magnesium oxide 400 twice a day. Discontinue IV fluid next a.m. awaiting final results for culture. Add laxatives. 25 - 35 minutes - Subjective Interval history: patient denies any any fever or chills. Patient denies any nausea or vomiting. Incision and drainage done at bedside by urologist, some improvement of the scrotal swelling. Vital signs stable, tolerated all his meals, no bowel movement since Saturday - Constitutional Vitals: Temp Pulse Resp BP Pulse Ox 99.3 F 97 18 105/72 93 L 04/06/16 12:55 04/06/16 11:20 04/06/16 10:30 04/06/16 10:30 04/06/16 10:30 General appearance: Present: cooperative, A&O X 3, pleasant, no acute distress, answers questions appropriately - Head Head exam: Present: atraumatic, normocephalic - Respiratory Respiratory exam: Present: CTAB. Absent: accessory muscle use, rales, rhonchi, wheezes - Cardiovascular Cardiovascular exam: Present: RRR, +S1, +S2. Absent: diastolic murmur, gallop, rubs, systolic murmur - GI/Abdominal GI/Abdominal exam: Present: normal bowel sounds, soft, no peritoneal signs. Absent: distended, tenderness - Expanded Exam Male exam: Present: erythema, induration (Erthema,Induaration and the swelling and tenderness of left right scrotal area) - Extremities Exam Extremities exam: Present: warm. Absent: calf tenderness, cyanotic, pedal edema Internal Medicine: Result - Labs CBC & Chem 7: 04/06/16 11:48 04/06/16 11:48 Labs: Short CBC 04/06/16 Range/Units 11:48 WBC 16.1 H (4.3-11.1) K/mcL Hgb 14.0 (12.9-16.9) g/dL Hct 41.8 (37.5-50.1) % Plt Count 267 (140-400) K/mcL Neutrophils # 13.1 H (1.6-8.9) K/mcL BMP 04/06/16 11:48 Sodium 131 L Potassium 3.9 Chloride 101 Carbon Dioxide 21 BUN 9 Creatinine 0.71 L Glucose 221 H Calcium 8.5 L - ABG Interpretation ABG results: PT/INR, D-dimer PT 11.5 Seconds (9.4-12.1) 04/04/16 17:10 Consult Discharge Plan - Plan Referrals: Thor Hilton MD [Primary Care Provider] -
[2016-04-06] MEDS: Magnesium Oxide 400 MG TABLET PO SCH (20:32)
[2016-04-06] MEDS: Sennosides 8.6 MG TABLET PO SCH (20:32)
[2016-04-06] MEDS: Lactobacillus 1 EACH CAP.SPRINK PO SCH (20:33)
[2016-04-07] MEDS: MetroNIDAZOLE 500 MG/100 ML 500 MG/100 ML BAG IVPB SCH ×3 (00:11→17:00)
[2016-04-07] MEDS: *HR* Heparin 5,000 UNIT/ML VIAL SQ SCH ×3 (00:11→17:00)
[2016-04-07] MEDS: Piperacillin/Tazobactam 3.375 GM in D5% in Water (Mini-Bag+) 100 ML IVPB SCH ×3 (00:12→17:00)
[2016-04-07] MEDS: 0.9 % Sodium Chloride 1,000 ML IVC SCH ×2 (05:21→17:00)
[2016-04-07] MEDS: Vancomycin 1,500 MG in D5% in Water 250 ML IVPB SCH (05:21)
[2016-04-07] MEDS ORDERED: Insulin LISPRO 300 UNITS/3 ML VIAL SQ SCH ×3 (07:30→21:00)
[2016-04-07] MEDS: Insulin DETEMIR 100 UNIT/ML X5UNITS SQ SCH ×2 (08:29→21:52)
[2016-04-07] MEDS: Famotidine 20 MG TABLET PO SCH ×2 (08:29→21:51)
[2016-04-07] MEDS: Magnesium Oxide 400 MG TABLET PO SCH ×2 (08:29→21:51)
[2016-04-07] MEDS: Lactobacillus 1 EACH CAP.SPRINK PO SCH ×2 (08:29→21:52)
[2016-04-07] MEDS: Sennosides 8.6 MG TABLET PO SCH ×2 (08:30→21:52)
[2016-04-07 09:05] LABS: Basophils % 0.2 %; Eosinophils # 0.1 K/mcL (0.0-0.6); Eosinophils % 0.9 %; Hematocrit 39.9 % (37.5-50.1); Hemoglobin 13.4 g/dL (12.9-16.9); Immature Granulocytes % 1.1 % (0-4); Lymphocytes # 0.9 K/mcL (0.6-4.6); Lymphocytes % 8.5 %; Mean Corpuscular HGB Conc 33.6 g/dL (31.6-35.5); Mean Corpuscular Hemoglobin 29.3 pg (28.0-33.3); Mean Corpuscular Volume 87.3 fL (83.0-100.0); Mean Platelet Volume 9.5 fL (9.4-12.4); Monocytes # 1.6 K/mcL (0.0-1.3); Monocytes % 14.2 %; Neutrophils # 8.3 K/mcL (1.6-8.9); Platelet Count 270 K/mcL (140-400); Red Blood Count 4.57 M/mcL (4.19-5.50); Red Cell Distribution Width 14.6 % (11.5-14.5); Segmented Neutrophils % 75.1 %
[2016-04-07 09:19] LABS: BUN/Creatinine Ratio 11 (6-26); Blood Urea Nitrogen 6 mg/dL (8-26); Calcium 8.6 mg/dL (8.6-10.8); Carbon Dioxide 26 mEq/L (19-29); Chloride 104 mEq/L (98-109); Glucose 97 mg/dL (70-99); Osmolality,Calculated 284 (280-300); Potassium 3.4 mEq/L (3.5-4.5); eGFR For African Americans > 60 (> 60); eGFR For Non-African Americans > 60 (> 60)
[2016-04-07 09:22] LABS: Sodium 138 mEq/L (136-145)
[2016-04-07] MEDS ORDERED: Ondansetron 4 MG/2 ML VIAL IVP ONE ×2 (09:27→11:14)
[2016-04-07] MEDS ORDERED: *HR* Morphine 2 MG/ML SYRINGE IVP PRN ×2 (09:27→11:14)
--- NOTE | 2016-04-07 09:27 | Anesthesia Evaluation PreOp ---
Date of Encounter: 04/07/16 Time of Encounter: 09:25 - Past History Planned Operation: I and D Groin Cardiac History: Denies any Significant Hx Pulmonary History: Smoker LICENSED AUDIOLOGIST History: Denies Any Significant HX Other Medical History: Diabetes Type II (Accu check 88) Anesthesia History: No Prior Anesthetic Complications Alcohol Use: rarely Drug use: none Medications and Allergies Atorvastatin Calcium [Lipitor] 80 mg PO HS 04/04/16 [History] Cephalexin [Keflex] 500 mg PO Q6H 04/04/16 [History] Insulin Glargine [Lantus] 65 unit SQ BID 04/04/16 [History] Metformin HCl [Glucophage Xr] 750 mg PO QPM 04/04/16 [History] Oxycodone HCl/Acetaminophen [Percocet 5-325 mg Tablet] 1 each PO Q6H PRN [History] Ramipril [Altace] 5 mg PO DAILY 04/04/16 [History] Sulfamethoxazole/Trimeth DS [Bactrim DS] 1 each PO BID 04/04/16 [History] Allergies No Known Allergies Allergy (Verified 04/04/16 14:55) - Meds/Allergy Pre-op Review Medications Reviewed: Yes Allergies Reviewed: Yes Beta Blockers on Current Med List: No Anesthesia Results - Labs 04/07/16 08:46 04/07/16 08:46 Anesthesia Exam O2 Sat Weight 107.7 kg O2 Sat by Pulse Oximetry 93 O2 Sat by Pulse Oximetry 96 O2 Sat by Pulse Oximetry 93 O2 Sat by Pulse Oximetry 93 O2 Sat by Pulse Oximetry 93 O2 Sat by Pulse Oximetry 93 Vital Signs Temp Pulse Resp BP Pulse Ox 98.2 F 97 16 136/73 97 04/04/16 14:55 04/04/16 14:55 04/04/16 14:55 04/04/16 14:55 04/04/16 14:55 Height: 5'9 Weight: 237 lbs NPO (# of Hours): MN - HEENT Pupil (Motor): Pupils equal, EOMI Mallampati: III Teeth: Edentulous Oral Opening: Less than or equal to 3 - LICENSED AUDIOLOGIST LOC: Oriented LICENSED AUDIOLOGIST Motor: Normal RUE, Normal LUE, Normal RLE, Normal LLE, Normal Face LICENSED AUDIOLOGIST Sensory: Normal: RUE, LUE, RLE, LLE, Face - Cardiac Rhythm: Regular Murmur: None JVD: No Carotid Bruit: No - Pulmonary Breath Sounds: bilateral Clear Respiratory Effort: Symmetrical Anesthesia Assess/Plan ASA Score: 3 (DM Tobacco), E Modified Turin Scale for Level of Consciousness: Cooperative, oriented, and tranquil Anesthetic Plan: General Monitoring Plan: Standard Monitors Recovery Plan: PACU (Discussed GA, agrees to proceed)
[2016-04-07] MEDS ORDERED: *HR* FentaNYL (PF) 100 MCG/2 ML VIAL ONE (09:31)
[2016-04-07] MEDS ORDERED: *HR* Propofol 200 MG/20 ML VIAL IVP ONE (09:32)
[2016-04-07] MEDS ORDERED: Ondansetron 4 MG/2 ML VIAL ONE (09:32)
[2016-04-07] MEDS ORDERED: Lidocaine -MPF 2% 2 ML VIAL ONE ×2 (09:32→10:18)
[2016-04-07] MEDS ORDERED: Dexamethasone 4 MG/ML VIAL ONE (09:32)
[2016-04-07] MEDS ORDERED: *HR* HYDROmorphone 2 MG/ML SYRINGE ONE (09:55)
--- NOTE | 2016-04-07 10:37 | Operative Note ---
Date of procedure: 04/07/16 Pre-op diagnosis: Right inguinal abscess Post-op diagnosis: same Procedure: Incision and drainage with extensive debridement of right inguinal abscess and cellulitis Anesthesia: GETA Surgeon: Duy Caceres Estimated blood loss (cc): 20 Specimen: Right inguinal tissue for culture Condition: stable Disposition: PACU Procedure in Detail: Patient was taken back to the operating room position supine on the operating table. Anesthesia was applied without complication. He was prepped and draped sterile fashion. Timeout was performed to confirm the proper patient and procedure. On exam the patient had 2 incisions one in the upper inguinal region and the other in the lower inguinal crease. There was some necrotic tissue within these incisions but there is no active drainage of purulence There is significant erythema that extended well into the suprapubic region. I started the procedure by using a Bovie on cut and made a connection between the 2 incisions. I was able to evacuate brownish purulent material from this location. I sharply debrided significant necrotic tissue which extended more laterally than expected. Much of the tissue contained bloody purulent material but there was no large pocket. I was able to debride back to more normal appearing tissue that had healthy bleeding. I noticed that the abnormal tissue and purulence seemed to track superiorly. There was a large pocket in the superior lateral aspect of the inguinal canal which almost traced to the anterior superior iliac crest. I extended my incision up into this area and evacuated a fairly substantial pocket of brownish purulent material. As a result of the debridement, a large defect in the skin was present but I felt that this was unavoidable secondary to the necrotic abnormal tissue. I used a jet lavage to wash the tissue with normal saline. Blood cautery Bovie was used to provide hemostasis. A Kerlix soaked in Dakin's was used to pack the incision. The entire kerlix was used. I placed a Ray catheter the end of the procedure. All counts are correct and this concludes the note on Jaison Guevara.
--- NOTE | 2016-04-07 10:54 | Anesthesia Evaluation Post Op ---
Date of Encounter: 04/07/16 Time of Encounter: 11:00 - Vital Signs Vital Signs: Vital Signs/O2 Sat/Glucose, Most Current Temp Pulse Resp BP Pulse Ox 04/07/16 10:48 84 18 122/89 94 L 04/07/16 10:38 78 16 124/71 92 L 04/07/16 10:30 103/75 04/07/16 10:28 97.3 F L 63 12 98/69 97 04/07/16 07:23 98.6 F 79 17 111/65 93 L - Lungs Lungs: Clear Ascult./Percussion - Airway Airway: Non-obstructed - Cardiovascular Regular Rate - Mental Status Mental Status: Alert & Oriented, Answers Appropriately - Pain Pain Scale: 0 - Nausea Vomiting Nausea Vomiting: Not Present - Hydration Hydration: Ice chips - Discharge PostOp Status: Transfer Patient to floor
[2016-04-07] MEDS ORDERED: Ibuprofen 400 MG TABLET PO PRN (11:14)
[2016-04-07] MEDS ORDERED: Dextrose Gel 15 GM PO PRN ×2 (11:14)
[2016-04-07] MEDS ORDERED: Ondansetron 4 MG/2 ML VIAL IVP PRN (11:14)
[2016-04-07] MEDS ORDERED: D5% in Water 1,000 ML IV PRN (11:14)
[2016-04-07] MEDS ORDERED: Acetaminophen 325 MG TABLET PO PRN (11:14)
[2016-04-07] MEDS ORDERED: *HR* Dextrose 50 % in Water (Syg) 50 ML SYRINGE IVP PRN (11:14)
[2016-04-07] MEDS ORDERED: Naloxone 0.4 MG/ML INJ IVP PRN (11:14)
--- NOTE | 2016-04-07 16:17 | Internal Med Progress Note ---
Date of Encounter: 04/07/16 Time of Encounter: 16:14 - Assessment and plan (1) Abscess of groin, right Current Visit: Yes Status: Acute Assessment and plan: no fever or leucocytosis. taken to OR for I and D by urology today. will follow urology recommendations. (2) DVT prophylaxis Current Visit: Yes Status: Acute (3) IDDM (insulin dependent diabetes mellitus) Current Visit: Yes Status: Chronic Assessment and plan: continue levemir and humalog. monitor fsg, currently under control. - Time Spent With Patient 25 - 35 minutes - Subjective Interval history: seen at the bedside, was ready to be taken to OR. planned for I and D by urology for the scrotal abscess. no complains at present. - Constitutional Vitals: Temp Pulse Resp BP Pulse Ox 98.1 F 75 17 127/73 95 04/07/16 14:47 04/07/16 14:47 04/07/16 14:47 04/07/16 14:47 04/07/16 14:47 General appearance: Present: cooperative, A&O X 3, pleasant, no acute distress, answers questions appropriately Exam: - Head Head exam: Present: atraumatic, normocephalic - Respiratory Respiratory exam: Present: CTAB. Absent: accessory muscle use, rales, rhonchi, wheezes - Cardiovascular Cardiovascular exam: Present: RRR, +S1, +S2. Absent: diastolic murmur, gallop, rubs, systolic murmur - GI/Abdominal GI/Abdominal exam: Present: normal bowel sounds, soft, no peritoneal signs. Absent: distended, tenderness - Expanded Exam Male exam: Present: erythema, induration (Erthema,Induaration and the swelling and tenderness of left right scrotal area) - Extremities Exam Extremities exam: Present: warm. Absent: calf tenderness, cyanotic, pedal edema Internal Medicine: Result - Labs CBC & Chem 7: 04/07/16 08:46 04/07/16 08:46 Labs: Short CBC 04/07/16 Range/Units 08:46 WBC 11.0 (4.3-11.1) K/mcL Hgb 13.4 (12.9-16.9) g/dL Hct 39.9 (37.5-50.1) % Plt Count 270 (140-400) K/mcL Neutrophils # 8.3 (1.6-8.9) K/mcL BMP 04/07/16 08:46 Sodium 138 D Potassium 3.4 L Chloride 104 Carbon Dioxide 26 BUN 6 L Creatinine 0.57 L Glucose 97 Calcium 8.6 - ABG Interpretation ABG results: PT/INR, D-dimer PT 11.5 Seconds (9.4-12.1) 04/04/16 17:10 Consult Discharge Plan - Plan Referrals: Thor Hilton MD [Primary Care Provider] -
[2016-04-07] MEDS: Insulin LISPRO 300 UNITS/3 ML VIAL SQ SCH ×2 (17:00→19:56)
[2016-04-07] MEDS ORDERED: Vancomycin 1,750 MG in D5% in Water 500 ML IVPB SCH (17:00)
[2016-04-07] MEDS: Vancomycin 1,750 MG in D5% in Water 500 ML IVPB SCH (19:53)
[2016-04-07] MEDS: *HR* OxyCODONE/APAP 5/325 TABLET PO PRN (21:52)
[2016-04-08] MEDS: *HR* Heparin 5,000 UNIT/ML VIAL SQ SCH ×3 (00:19→17:18)
[2016-04-08] MEDS: Piperacillin/Tazobactam 3.375 GM in D5% in Water (Mini-Bag+) 100 ML IVPB SCH ×3 (00:19→17:16)
[2016-04-08] MEDS: MetroNIDAZOLE 500 MG/100 ML 500 MG/100 ML BAG IVPB SCH ×3 (00:20→17:18)
[2016-04-08] MEDS: *HR* OxyCODONE/APAP 5/325 TABLET PO PRN ×3 (03:27→17:18)
[2016-04-08] MEDS: Vancomycin 1,750 MG in D5% in Water 500 ML IVPB SCH ×2 (04:28→17:18)
--- NOTE | 2016-04-08 08:38 | Urology Progress Note ---
Date of Encounter: 04/08/16 Time of Encounter: 08:35 - Assessment and Plan (1) Abscess of groin, right Current Visit: Yes Status: Resolved Assessment and plan: based on exam this AM I do not feel he will require further surgical intervention. need to address wound care. patient is going to ask his girlfriend (who is a nurse) if she is comfortable changing the packing. if she is not, he will need daily home health care for dressing changes. he will also need outpatient followup in wound care clinic. cultures are neg so far but will follow tissue cultures sent yesterday. Progress Note Subjective: no new complaints, feels better, still having pain Objective Initial Vital Signs Temp Pulse Resp BP Pulse Ox 98.2 F 97 16 136/73 97 04/04/16 14:55 04/04/16 14:55 04/04/16 14:55 04/04/16 14:55 04/04/16 14:55 - General physical appearance Present: well developed, no distress - Additional Exam removed packing. no new purulence. pt tolerated well. repacked with Kerlix damp with Dakins. - Labs 04/07/16 08:46 04/07/16 08:46 Diabetes panel 04/07/16 Range/Units 08:46 Sodium 138 D (136-145) mEq/L Potassium 3.4 L (3.5-4.5) mEq/L Chloride 104 (98-109) mEq/L Carbon Dioxide 26 (19-29) mEq/L BUN 6 L (8-26) mg/dL Creatinine 0.57 L (0.72-1.25) mg/dL Glucose 97 (70-99) mg/dL Calcium 8.6 (8.6-10.8) mg/dL Calcium panel 04/07/16 Range/Units 08:46 Calcium 8.6 (8.6-10.8) mg/dL Pituitary panel 04/07/16 Range/Units 08:46 Sodium 138 D (136-145) mEq/L Potassium 3.4 L (3.5-4.5) mEq/L Chloride 104 (98-109) mEq/L Carbon Dioxide 26 (19-29) mEq/L BUN 6 L (8-26) mg/dL Creatinine 0.57 L (0.72-1.25) mg/dL Glucose 97 (70-99) mg/dL Calcium 8.6 (8.6-10.8) mg/dL Adrenal panel 04/07/16 Range/Units 08:46 Sodium 138 D (136-145) mEq/L Potassium 3.4 L (3.5-4.5) mEq/L Chloride 104 (98-109) mEq/L Carbon Dioxide 26 (19-29) mEq/L BUN 6 L (8-26) mg/dL Creatinine 0.57 L (0.72-1.25) mg/dL Glucose 97 (70-99) mg/dL Calcium 8.6 (8.6-10.8) mg/dL Consult Discharge Plan - Plan Referrals: Thor Hilton MD [Primary Care Provider] -
[2016-04-08] MEDS: Insulin LISPRO 300 UNITS/3 ML VIAL SQ SCH ×3 (09:13→17:16)
[2016-04-08 09:14] LABS: Basophils # 0.1 K/mcL (0.0-0.2); Basophils % 0.4 %; Eosinophils # 0.1 K/mcL (0.0-0.6); Hematocrit 38.4 % (37.5-50.1); Hemoglobin 12.8 g/dL (12.9-16.9); Immature Granulocytes % 1.6 % (0-4); Lymphocytes # 2.3 K/mcL (0.6-4.6); Lymphocytes % 18.6 %; Mean Corpuscular HGB Conc 33.3 g/dL (31.6-35.5); Mean Corpuscular Hemoglobin 28.6 pg (28.0-33.3); Mean Corpuscular Volume 85.9 fL (83.0-100.0); Mean Platelet Volume 9.4 fL (9.4-12.4); Monocytes # 1.9 K/mcL (0.0-1.3); Monocytes % 15.9 %; Neutrophils # 7.5 K/mcL (1.6-8.9); Platelet Count 307 K/mcL (140-400); Red Blood Count 4.47 M/mcL (4.19-5.50); Red Cell Distribution Width 14.6 % (11.5-14.5); Segmented Neutrophils % 62.5 %
[2016-04-08] MEDS: 0.9 % Sodium Chloride 1,000 ML IVC SCH (09:25)
[2016-04-08] MEDS: Insulin DETEMIR 100 UNIT/ML X5UNITS SQ SCH (09:26)
[2016-04-08 09:27] LABS: BUN/Creatinine Ratio 8 (6-26); Calcium 8.5 mg/dL (8.6-10.8); Carbon Dioxide 26 mEq/L (19-29); Chloride 103 mEq/L (98-109); Glucose 96 mg/dL (70-99); Osmolality,Calculated 285 (280-300); Potassium 3.1 mEq/L (3.5-4.5); Sodium 139 mEq/L (136-145); eGFR For African Americans > 60 (> 60); eGFR For Non-African Americans > 60 (> 60)
[2016-04-08] MEDS: Sennosides 8.6 MG TABLET PO SCH (09:27)
[2016-04-08] MEDS: Lactobacillus 1 EACH CAP.SPRINK PO SCH (09:27)
[2016-04-08] MEDS: Famotidine 20 MG TABLET PO SCH (09:27)
[2016-04-08] MEDS: Magnesium Oxide 400 MG TABLET PO SCH (09:27)
[2016-04-08 09:28] LABS: Blood Urea Nitrogen 5 mg/dL (8-26)
[2016-04-08 16:02] VITALS: BP 132/97
--- NOTE | 2016-04-08 17:39 | Discharge Summary ---
Date of Encounter: 04/08/16 Time of Encounter: 17:36 - Discharge Diagnosis (1) Abscess of groin, right Priority: Primary Status: Resolved (2) DVT prophylaxis Priority: Secondary Status: Acute (3) IDDM (insulin dependent diabetes mellitus) Priority: Secondary Status: Chronic - Discharge Medications Prescriptions: Lactobacillus [Culturelle] 1 each PO BID #60 cap.sprink Levofloxacin 500 mg PO DAILY #7 tablet Oxycodone HCl/Acetaminophen [Percocet 5-325 mg Tablet] 1 each PO Q6H PRN #30 tablet PRN Reason: Pain Sodium Hypochlorite 0.25% [Dakin's (Half-Strength 0.25%)] 1 appl TP DAILY #4 bottle Home Medications: Atorvastatin Calcium [Lipitor] 80 mg PO HS 04/04/16 [History] Insulin Glargine [Lantus] 65 unit SQ BID 04/04/16 [History] Metformin HCl [Glucophage Xr] 750 mg PO QPM 04/04/16 [History] Ramipril [Altace] 5 mg PO DAILY 04/04/16 [History] Lactobacillus [Culturelle] 1 each PO BID #60 cap.sprink 04/08/16 [Rx] Levofloxacin 500 mg PO DAILY #7 tablet 04/08/16 [Rx] Oxycodone HCl/Acetaminophen [Percocet 5-325 mg Tablet] 1 each PO Q6H PRN #30 tablet 04/08/16 [Rx] Sodium Hypochlorite 0.25% [Dakin's (Half-Strength 0.25%)] 1 appl TP DAILY #4 bottle 04/08/16 [Rx] Allergies/Adverse Reactions: Allergies No Known Allergies Allergy (Verified 04/04/16 14:55) Date of admission: 04/04/16 21:49 Primary care physician: Stepan Aburto Consults: 04/07/16 11:14 Consult to Wound Care [CONS] Routine Reason for Consult: assistance with wound care after large debridement Call Completed: No Discharging clinician: Gabriel Patrick Anticipated date of discharge: 04/08/16 - Patient Status Disposition: Home, Self-Care Condition: Fair Functional capacity at discharge: independent ambulation Overall status at discharge: patient is progressing back to baseline - Discharge Instructions Follow Up With: Thor Hilton MD [Primary Care Provider] - Additional Instructions: daily dressing change with kerlix damp with dakins. follow up with wound care as OP. - Diet and Activity Activity: resume usual activities as tolerated Interval History: Mr. Guevara is a 55 year old male who was sent to the ER with complaints of persistent right groin and inguinal cellulitis despite outpatient antibiotic treatment. He was seen in urology clinic and referred to ER for admission. In the ER, patient had a small incision and culture performed by the ER staff. A CT scan of the pelvis was obtained also which revealed cellulitis of the right groin with possibility of Laney's gangrene. Dr. Caceres was contacted by ER staff who saw patient immediately. He was started on aggressive IV antibiotics. He has been on Bactrim and Keflex with little improvement and initial worsening of his cellulitis. He denies any fevers, chills, or body aches. He is diabetic and notes his glucoses been relatively stable and running about 150- 200, which is his baseline. He denies any dysuria, hematuria, urinary urgency, or flank pain. He was followed by urology as inpatient and underwent incision and drainage. Blood cultures so far has been negative, however the tissue cultures were also sent from the procedure. Which is pending. He has remained afebrile, clinically improved. In this time patient is being discharged home. His girlfriend is a nurse and is comfortable doing the dressing change her to home with instructions as directed. Patient is to follow-up in wound care, he is being discharged on oral levofloxacin as recommended by urology. Hospital course: Mr. Guevara is a 55 year old male Time spent discussing smoking cessation with patient: more than 10 minutes - Time Spent with Patient Total time spent providing and/or coordinating discharge services: Greater than 30 minutes - Constitutional Vitals: Temp Pulse Resp BP Pulse Ox 98.7 F 87 16 132/97 97 04/08/16 15:58 04/08/16 15:58 04/08/16 15:58 04/08/16 15:58 04/08/16 15:58 General appearance: Present: cooperative, A&O X 3, pleasant, no acute distress, answers questions appropriately Exam: - Head Head exam: Present: atraumatic, normal inspection - Eye Eye exam: Present: EOMI, normal appearance, PERRL. Absent: scleral icterus Pupils: Present: normal accommodation - ENT ENT exam: normal exam, normal oropharynx - Neck Neck exam general surgery: Present: full ROM, normal inspection, supple. Absent : lymphadenopathy, nuchal rigidity, thyromegaly - Expanded Neck Exam Neck exam: Absent: carotid bruit - Respiratory Respiratory exam: Present: CTAB. Absent: rales, respiratory distress, rhonchi, wheezes - Cardiovascular Cardiovascular exam: Present: RRR, +S1, +S2. Absent: diastolic murmur, systolic murmur - GI/Abdominal GI/Abdominal exam: Present: normal bowel sounds. Absent: guarding, hepatomegaly , mass, rebound, splenomegaly, tenderness - exam: scrotum with packing, no new purulence on removal of the packing. - Extremities Exam Extremities exam: Present: full ROM, normal capillary refill, warm. Absent: calf tenderness, pedal edema, tenderness - Back Exam Back exam: Present: normal inspection. Absent: CVA tenderness (L), CVA tenderness (R) - Neurological Exam Neurological exam: Present: alert, CN II-XII intact, oriented X3, no focal deficits - Psychiatric Psychiatric exam: Absent: anxious, depressed - Skin Skin exam: Present: dry, warm
[2016-04-08] MEDS ORDERED: Aminoglycoside Consult 1 EACH MC ONE (20:25)
== END 2016-04-08 20:26 | disposition home or self-care (01) | DRG 623 ==
LOC: 3ANU 14:39 → EMEROO 14:39 → 3ANU 20:45 → SUATTDRO 21:49
PROVIDERS: ADMIT Family Medicine; ATTEND Internal Medicine Endocrinology, Diabetes & Metabolism